=== PATIENT | female | born 1960 | race Caucasian/White ===

== ENCOUNTER 2022-01-09 12:01 | Emergency (ER) | payer OTHER, SELFPAY ==
[2022-01-09 12:07] VITALS: BP 188/11; PULSE 66; RESP 18; TEMP 36.3; O2SAT 96; BMI 32.9
--- NOTE | 2022-01-09 13:26 | CRLHL7_ITS ---
For Patients: As a result of the Century Cures Act, medical imaging exams and procedure reports are released immediately into your electronic medical record. You may view this report before your referring provider. If you have questions, please contact your health care provider. HISTORY: Anterior pain. No injury. TECHNIQUE: CT right hip without contrast. COMPARISON: None. FINDINGS: No fracture. Right hip joint is maintained. Pubic symphysis is maintained. Mild degenerative changes of the visualized portion of the right sacroiliac joint. Small bone island in the medial right acetabulum. Atherosclerotic calcifications. Partially visualized aneurysmal dilation of the left common iliac artery. IMPRESSION: 1. No acute abnormality. 2. Atherosclerosis. Partially visualized left common iliac artery aneurysm. Please note that all CT scans at this facility use dose modulation, iterative reconstruction, and/or weight-based dosing when appropriate to reduce radiation dose to as low as reasonably achievable. Dictated by Tristin Reyes MD @ 01/09/2022 2:57:58 PM (Electronically Signed)
[2022-01-09] MEDS: MORPHINE 2 MG/ML inj 4 MG IVP (13:55)
--- NOTE | 2022-01-09 14:00 | ED.NURSE ---
4mg/ml vial of morphine given.
--- NOTE | 2022-01-09 14:36 | ED_ITS ---
HPI - General Adult General Chief complaint: Extremity Pain/Injury, Lower Stated complaint: Right leg pain Time Seen by Provider: 01/09/22 13:01 Source: patient Limitations: no limitations History of Present Illness HPI narrative: 61-year-old female coming in today complaining of hip and leg pain going on for about 2 weeks. She states that it started with a discomfort on the anterior thigh and into the groin. She started seeing a chiropractor who has been adjusting her pelvis for the last 2 weeks and the pain seems to have been tolerable. Today however she woke up and she had increasing pain in the anterior thigh area. She describes it as a constant soreness and then she gets muscle spasms that caused her to double over. She states that she can hardly move that leg without the pain shooting into her thigh and hip area. Any movement makes it worse nothing seems to make it better. She denies any systemic symptoms such as fevers, chills, nausea, vomiting. She denies pain in any other joint or extremity. She denies the thigh swelling or any skin changes. She denies any trauma to the area. She denies any knee pain on that side. She denies any back pain. She has not been having any weight loss, night sweats. No changes in her appetite. Related Data Home Medications Medication Instructions Recorded Confirmed atenolol 25 mg tablet 25 mg PO DAILY 01/09/22 01/09/22 levothyroxine 75 mcg tablet 75 mcg PO DAILY 01/09/22 01/09/22 lisinopril 20 0.5 tab PO DAILY 01/09/22 01/09/22 mg-hydrochlorothiazide 25 mg tablet simvastatin 40 mg tablet 40 mg PO HS 01/09/22 01/09/22 Previous Rx's Medication Instructions Recorded methylprednisolone 4 mg tablets in See Rx Instructions PO .COMPLEX 01/09/22 a dose pack (Medrol (Jaspreet)) #21 ea Allergies Allergy/AdvReac Type Severity Reaction Status Date / Time guaifenesin AdvReac Intermediate Hives Verified 01/09/22 12:12 Penicillins AdvReac Intermediate Diarrhea Verified 01/09/22 12:12 Review of Systems Status of ROS: Reports: 10 or more systems reviewed and unremarkable except as noted in History and below PFSH PFS Social History Smoking Status: Never smoker Do you use any of these nicotine containing products: None Second hand tobacco smoke exposure: No How often do you have a drink containing alcohol: monthly or less How often do you have six or more drinks on one occasion: Never AUDIT-C Alcohol total score: 1 Non-prescribed substance use: denies use service: No Exam Narrative: Exam Narrative: Overweight, well-developed patient in no acute distress. Alert and oriented. Answers questions appropriately. Mood and affect are appropriate. Thoughts are goal oriented and rational. No tangential or magical thinking noted. Patient speaks in full sentences without needing to catch her breath. She does not appear ill or toxic. HEENT: Normocephalic atraumatic. Pupils are equally round reactive to light. Extraocular muscles are intact. Conjunctivae are moist without any icterus noted. Cardiovascular: Heart is regular rate and rhythm S1 and S2 are present. Lungs: Clear to auscultation bilaterally. Abdomen: Soft and nontender nondistended with normal bowel sounds. No guarding or rebound. No masses or organomegaly appreciated. Extremities: Bilateral lower extremities are without edema. Normal DP and PT pulses. Patient has no tenderness to palpation of the anterior thigh. The thigh is not swollen or erythematous. When she has which she describes a muscle spasm the muscle does not feel tighter were contracted. I cannot move her leg without the patient crying in pain, therefore I cannot examine her hip joint. Skin: Well perfused without any obvious rashes. Const: Vital Signs, click to edit/add: Vital Signs - 24 hr 01/09/22 12:07 01/09/22 15:12 Temperature 97.4 F L Pulse Rate 60 Pulse Rate [Pulse Oximeter] 66 Respiratory Rate 18 Blood Pressure 134/62 Blood Pressure [Ri ght Upper Arm] 188/11 H Pulse Oximetry 96 97 Oxygen Delivery Me thod Room Air Course Course Hospital Course: IV was started and patient was given IV morphine. This did take the edge off of her pain. We did proceed with a hip CT given the duration of her pain and the intensity of it. This is unremarkable. Proceeded with a femur and lumbar spine x-ray, both unremarkable. Vital Signs Vital signs: Initial Vital Signs Temperature 97.4 F L 01/09/22 12:07 Temperature Source Temporal Artery Scan 01/09/22 12:07 Pulse Rate 66 01/09/22 12:07 Respiratory Rate 18 01/09/22 12:07 Blood Pressure 188/11 H 01/09/22 12:07 Blood Pressure Mean 70 01/09/22 12:07 Blood Pressure Position Standing 01/09/22 12:07 Pulse Oximetry 96 01/09/22 12:07 Oxygen Delivery Method 01/09/22 12:07 Vital Signs Temperature 97.4 F L 01/09/22 12:07 Pulse Rate 66 01/09/22 12:07 Respiratory Rate 18 01/09/22 12:07 Blood Pressure 188/11 H 01/09/22 12:07 Pulse Oximetry 96 01/09/22 12:07 Oxygen Delivery Method 01/09/22 12:07 Temperature 97.4 F L 01/09/22 12:07 Pulse Rate 60 01/09/22 15:12 Respiratory Rate 18 01/09/22 12:07 Blood Pressure 134/62 01/09/22 15:12 Pulse Oximetry 97 01/09/22 15:12 Oxygen Delivery Method 01/09/22 12:07 Medical Decision Making [facility] Narrative Medical decision making narrative: 61-year-old female with 2 weeks of anterior leg pain sometimes radiating into the groin. Question a femoral nerve impingement. We ruled out soft tissue and bony masses or malignancy today. I do not see any evidence of vascular compromise. We discussed a steroid to see if we can decrease impingement and inflammation of that nerve, follow-up with primary care in the next few days. Patient was agreeable with this. I also did prescribe her hydrocodone to take as needed, 10 tablets from [facility]. Imaging Data lumbar spine: Attestation: I have reviewed the pertinent imaging results. Radiologist's impression: Findings/Impression: Five non rib-bearing lumbar type vertebral bodies. No vertebral body height loss or evidence of acute fracture. Severe multilevel degenerative disc disease most advanced at L3-L4 and L4-L5. Multilevel facet degenerative change in the lower lumbar spine. Mild degenerative change in the right SI joint. Aortic atherosclerosis. femur xr: Attestation: I have reviewed the pertinent imaging results. Radiologist's impression: Findings/Impression: Bones: Alignment is normal. No fractures or bone lesions. Joint spaces: Unremarkable. Soft tissues: Unremarkable. CT hip: Attestation: I have reviewed the pertinent imaging results. Radiologist's impression: FINDINGS: No fracture. Right hip joint is maintained. Pubic symphysis is maintained. Mild degenerative changes of the visualized portion of the right sacroiliac joint. Small bone island in the medial right acetabulum. Atherosclerotic calcifications. Partially visualized aneurysmal dilation of the left common iliac artery. IMPRESSION: 1. No acute abnormality. 2. Atherosclerosis. Partially visualized left common iliac artery aneurysm. Discharge Plan Discharge Clinical Impression: Acute leg pain Patient Disposition: Home, Self-Care Condition: Stable Additional Instructions: Take steroid as prescribed. Okay to use ibuprofen or Tylenol as needed for discomfort. Follow-up with your primary care provider in the clinic early next week if you are not noticing any improvement. Prescriptions: New methylprednisolone [Medrol (Jaspreet)] 4 mg tablets,dose pack See Rx Instructions .ROUTE .COMPLEX Qty: 21 0RF Rx Instructions: orally per package directions No Action atenolol 25 mg tablet 25 mg PO DAILY Label Comments: TAKE 1 TABLET BY MOUTH ONCE DAILY simvastatin 40 mg tablet 40 mg PO HS Label Comments: TAKE 1 TABLET BY MOUTH AT BEDTIME levothyroxine 75 mcg tablet 75 mcg PO DAILY Label Comments: TAKE 1 TABLET BY MOUTH ONCE DAILY lisinopril-hydrochlorothiazide 20-25 mg tablet 0.5 tab PO DAILY Label Comments: TAKE 1/2 TABLET BY MOUTH DAILY Follow Up/Referrals: Sania Navarrete MD [Primary Care Provider] - Stand Alone Forms: [employer] Info Instructions
[2022-01-09 15:12] VITALS: BP 134/62; PULSE 60; O2SAT 97
--- NOTE | 2022-01-09 15:24 | CRLHL7_ITS ---
For Patients: As a result of the Cures Act, medical imaging exams and procedure reports are released immediately into your electronic medical record. You may view this report before your referring provider. If you have questions, please contact your health care provider. Indication: Radiculopathy. Technique: Two views. Comparison: None. Findings/Impression: Five non rib-bearing lumbar type vertebral bodies. No vertebral body height loss or evidence of acute fracture. Severe multilevel degenerative disc disease most advanced at L3-L4 and L4-L5. Multilevel facet degenerative change in the lower lumbar spine. Mild degenerative change in the right SI joint. Aortic atherosclerosis. Dictated by Cipriano Bhagat MD @ 01/09/2022 4:05:08 PM (Electronically Signed)
--- NOTE | 2022-01-09 15:24 | CRLHL7_ITS ---
For Patients: As a result of the Century Cures Act, medical imaging exams and procedure reports are released immediately into your electronic medical record. You may view this report before your referring provider. If you have questions, please contact your health care provider. Indication: Leg pain. Technique: Two views. Comparison: CT hip 01/09/2022. Findings/Impression: Bones: Alignment is normal. No fractures or bone lesions. Joint spaces: Unremarkable. Soft tissues: Unremarkable. Dictated by Cipriano Bhagat MD @ 01/09/2022 4:03:39 PM (Electronically Signed)
[2022-01-09 15:32] VITALS: BP 153/76
[2022-01-09 16:02] VITALS: BP 156/80; PULSE 55; O2SAT 98
[2022-01-09 16:05] VITALS: PULSE 58; O2SAT 98
== END 2022-01-09 16:33 | disposition home or self-care (01) ==
PROVIDERS: Emergency Provider Family Medicine; PCP Family Medicine
DX: M25.551 Pain in right hip (principal); M79.651 Pain in right thigh
CPT/HCPCS: 72100; 73552; 73700; 96374; 99284; J2270

== ENCOUNTER 2022-06-03 16:00 | Outpatient (CLI) | payer OTHER, SELFPAY ==
--- NOTE | 2022-06-03 16:00 | CRLHL7_ITS ---
For Patients: As a result of the Century Cures Act, medical imaging exams and procedure reports are released immediately into your electronic medical record. You may view this report before your referring provider. If you have questions, please contact your health care provider. INDICATION: Multinodular thyroid goiter. Follow-up right-sided thyroid lobe nodules. TECHNIQUE: Directed thyroid ultrasound. COMPARISON: 05/21/2020. FINDINGS: The right thyroid lobe measures 4.6 x 1.6 x 1.5 cm. The left thyroid lobe measures 4.2 x 2.0 x 1.9 cm. The isthmus measures 0.3 cm. The thyroid echotexture is extremely heterogeneous. Within the mid left thyroid gland, there is a 3 x 4 x 6 mm dense calcification. This was identified previously and is unchanged. Within the upper pole of the right thyroid gland, there is a 1.2 x 1.4 x 1.5 cm solid nodule, little changed when accounting for technique, previously measuring 1.6 x 1.4 x 1.2 cm. Within the inferior right thyroid lobe, there is a 1.9 x 0.8 x 1.7 cm heterogeneous complex cystic and solid nodule. In the mid medial right thyroid gland near the isthmus is a 1.8 x 1.2 x 1.5 cm solid nodule with calcification. Previously only a single right lower lobe nodule was described measuring 2.1 x 1.6 x 1.5 cm. It is likely that these latter two nodules are coalescing, similar to the prior study (T4 lesion). IMPRESSION: 1. Diffusely heterogeneous thyroid gland. 2. Stable dense calcification mid left thyroid gland. 3. Relatively stable right upper lobe solid nodule measuring up to 1.5 cm, previously 1.6 cm. 4. The two lesions described in the right lower thyroid gland extending to the isthmus may reflect coalescing nodules. Consider follow-up ultrasound in 1 year. Dictated by Luiz Murguia MD @ 06/04/2022 12:02:07 PM (Electronically Signed)
== END 2022-06-03 16:01 | disposition home or self-care (01) ==
LOC: US 16:00
PROVIDERS: PCP Family Medicine; Visit Provider Surgery
DX: E04.1 Nontoxic single thyroid nodule (principal)
CPT/HCPCS: 76536

== ENCOUNTER 2022-07-07 08:40 | Outpatient (CLI) | payer OTHER, SELFPAY ==
[2022-07-07 14:59] LABS: Albumin* 4.4 g/dL (3.3-5.0); Chloride* 100 mmol/L (96-114)
[2022-07-07 15:00] LABS: Potassium* 4.4 mmol/L (3.6-5.1); Sodium* 134 mmol/L (135-149)
[2022-07-07 15:02] LABS: Bilirubin Total* 0.5 mg/dL (0.1-1.5); Carbon Dioxide* 27 mmol/L (20-32); Cholesterol* 185 mg/dL (90-199); Creatinine* 0.8 mg/dL (0.5-1.5); Estimated Glomerular Filt Rate 83 ml/min
[2022-07-07 15:03] LABS: Alanine Aminotransferase* 22 U/L (4-35); Alkaline Phosphatase* 62 U/L (40-150); Aspartate Amino Transferase* 27 U/L (12-35); Blood Urea Nitrogen* 11 mg/dL (7-30); Calcium* 9.4 mg/dL (8.4-10.6); Glucose* 109 mg/dL (60-115); HDL Cholesterol* 59 mg/dL (>=50); LDL Cholesterol Calculated 86 mg/dL (<100); Total Protein* 7.3 g/dL (6.0-8.3); Triglycerides* 199 mg/dL (40-149)
== END 2022-07-07 08:41 | disposition home or self-care (01) ==
PROVIDERS: PCP Family Medicine; Visit Provider Internal Medicine
DX: E78.5 Hyperlipidemia, unspecified (principal); I10 Essential (primary) hypertension
CPT/HCPCS: 80053; 80061

== ENCOUNTER 2022-07-09 14:54 | Outpatient (CLI) | payer OTHER, SELFPAY | END 2022-07-09 14:55 | disposition home or self-care (01) | LOC: NFLDREF 14:55 | PROVIDERS: PCP Family Medicine; Visit Provider Internal Medicine | DX: Z00.00 Encounter for general adult medical examination without abnormal findings (principal); E04.1 Nontoxic single thyroid nodule; I10 Essential (primary) hypertension; E66.9 Obesity, unspecified; E78.5 Hyperlipidemia, unspecified | CPT/HCPCS: 84443 ==

== ENCOUNTER 2022-08-29 11:53 | Outpatient (CLI) | payer OTHER, SELFPAY | END 2022-08-29 11:54 | disposition home or self-care (01) | PROVIDERS: PCP Internal Medicine; Visit Provider Internal Medicine | DX: Z12.11 Encounter for screening for malignant neoplasm of colon (principal); K63.5 Polyp of colon; K57.30 Diverticulosis of large intestine without perforation or abscess without bleeding | CPT/HCPCS: 45380; 88305; J2250; J3010 ==

== ENCOUNTER 2022-09-02 20:40 | Inpatient (IN) | payer OTHER, SELFPAY ==
[2022-09-02] VITALS (9 sets, daily range): BP systolic 118–185; BP diastolic 68–84; PULSE 74–81; RESP 16–18; TEMP 36.7–36.8; O2SAT 97–99; BMI 32.0
--- NOTE | 2022-09-02 21:15 | ED_ITS ---
HPI - Abdominal Pain General Chief Complaint: Abdominal Pain Stated Complaint: Had colonoscopy, abdominal pain Time Seen by Provider: 09/02/22 21:01 History of Present Illness HPI narrative: 62-year-old woman with a history of diverticulitis having had a surveillance colonoscopy 4 days ago. She reports 1 polyp was removed she thinks around the area of the sigmoid. Since that time she has had increasing pain that developed really the next night. Has been in contact with colonoscopy provider and was initiated on ciprofloxacin and metronidazole and has had 3 doses of that. She does have some nausea but has not been vomiting. Has had a number of stools and continues to pass flatus. Last stool today was maybe a little runny maybe a little darker. Feels generally quite bloated. Has not noticed any hematochezia. No fever. No chills. Took some acetaminophen with minimal ef fect on pain. Urinating normally. Related Data Previous Rx's Medication Instructions Recorded atenolol 25 mg tablet 25 mg PO DAILY Hypertension #90 07/09/22 tabs levothyroxine 75 mcg tablet 75 mcg PO DAILY Hypothyroidism #90 07/09/22 tabs lisinopril 20 0.5 tab PO DAILY Hypertension #60 07/09/22 mg-hydrochlorothiazide 25 mg tablet tabs simvastatin 40 mg tablet 40 mg PO HS Hyperlipidemia #90 tabs 07/09/22 peg 3350-electrolytes 236 240 ml PO Q10M #4,000 mL 07/15/22 gram-22.74 gram-6.74 gram-5.86 gram solution (Golytely) ciprofloxacin HCl 500 mg tablet 500 mg PO BID Diverticulitis #14 09/01/22 tabs metronidazole 500 mg tablet 500 mg PO TID Diverticulitis 7 09/01/22 days #21 tabs Allergies Allergy/AdvReac Type Severity Reaction Status Date / Time guaifenesin Allergy Severe Rash Verified 09/02/22 21:00 penicillin V Allergy Severe Diarrhea Verified 09/02/22 21:00 Penicillins AdvReac Intermediate Diarrhea Verified 09/02/22 21:00 Review of Systems Status of ROS Reports: 6 or more systems reviewed and unremarkable except as noted in History and below [facility] Medical History Diverticulitis ?K57.92 - Diverticulitis of intestine, part unspecified, without perforation or abscess without bleeding (ICD-10) Encounter for pre-operative examination ?Z01.818 - Encounter for other preprocedural examination (ICD-10) Surgical History History of appendectomy (1983) ?Z90.49 - Acquired absence of other specified parts of digestive tract (ICD- 10) History of hysterectomy with bilateral oophorectomy (1988) ?Z90.710 - Acquired absence of both cervix and uterus (ICD-10) ?Z90.722 - Acquired absence of ovaries, bilateral (ICD-10) History of laparoscopy ?Z98.890 - Other specified postprocedural states (ICD-10) Family History Father Melanoma Uncle Melanoma Social History Highest level of school completed/degree received: some college, no degree Smoking Status: Current some day smoker Do you use any of these nicotine containing products: None Second hand tobacco smoke exposure: No How often do you have a drink containing alcohol: monthly or less How often do you have six or more drinks on one occasion: Never AUDIT-C Alcohol total score: 1 Non-prescribed substance use: denies use Caffeine: No Little interest or pleasure in doing things: not at all Feeling down, depressed, or hopeless: not at all service: No Exam Narrative: Exam Narrative: Pleasant. Mild hard of hearing with hearing aids in place. Seems generally a little uncomfortable with movements. Breathing easily. Skin is warm and dry. Lower extremities are without edema. She is well-perfused peripherally. Oropharynx is moist. She is chewing some mint gum. Lungs appear to be clear. Heart with regular rate and rhythm with a 1/6 holosystolic murmur. She reports this is not new. Abdomen with normoactive bowel sounds is soft though clearly tender throughout the mid low abdomen. No peritoneal signs. She does guard just a little bit. Const: Vital Signs, click to edit/add: Vital Signs - 24 hr 09/02/22 20:57 09/02/22 21:40 09/02/22 22:33 Temperature 98.0 F 98.0 F 98.2 F Pulse Rate Pulse Rate [Right Pulse Oximeter] 79 81 Respiratory Rate 18 16 Blood Pressure Blood Pressure [Ri ght Upper Arm] 185/84 H 118/79 Pulse Oximetry 99 99 Oxygen Delivery Me thod Room Air Room Air 09/02/22 22:09 09/02/22 22:30 09/02/22 21:00 Temperature Pulse Rate 78 75 Pulse Rate [Right Pulse Oximeter] Respiratory Rate 16 16 Blood Pressure 136/68 125/70 Blood Pressure [Ri ght Upper Arm] Pulse Oximetry 98 99 98 Oxygen Delivery Me thod 09/02/22 22:36 09/02/22 22:32 09/02/22 23:02 Temperature 98.2 F Pulse Rate 79 74 Pulse Rate [Right Pulse Oximeter] Respiratory Rate 16 16 Blood Pressure 139/68 149/72 H Blood Pressure [Ri ght Upper Arm] Pulse Oximetry 97 99 Oxygen Delivery Me thod 09/03/22 00:08 Temperature 98.2 F Pulse Rate Pulse Rate [Right Pulse Oximeter] 84 Respiratory Rate 16 Blood Pressure Blood Pressure [Ri ght Upper Arm] 124/78 Pulse Oximetry 99 Oxygen Delivery Me thod Room Air Documenting provider has reviewed patient's vital signs: yes Course Vital Signs Vital signs: Initial Vital Signs Temperature 98.0 F 09/02/22 20:57 Temperature Source Temporal Artery Scan 09/02/22 20:57 Pulse Rate 79 09/02/22 20:57 Respiratory Rate 18 09/02/22 20:57 Blood Pressure 185/84 H 09/02/22 20:57 Blood Pressure Mean 117 H 09/02/22 20:57 Blood Pressure Position Sitting 09/02/22 20:57 Pulse Oximetry 99 09/02/22 20:57 Oxygen Delivery Method Room Air 09/02/22 20:57 Vital Signs Temperature 98.0 F 09/02/22 20:57 Pulse Rate 79 09/02/22 20:57 Respiratory Rate 18 09/02/22 20:57 Blood Pressure 185/84 H 09/02/22 20:57 Pulse Oximetry 99 09/02/22 20:57 Oxygen Delivery Method Room Air 09/02/22 20:57 Temperature 98.0 F 09/03/22 02:57 Pulse Rate 65 09/03/22 02:57 Respiratory Rate 16 09/03/22 02:57 Blood Pressure 146/83 H 09/03/22 02:57 Pulse Oximetry 94 09/03/22 02:57 Oxygen Delivery Method Room Air 09/03/22 02:57 MDM - Abdominal Pain MDM Narrative Medical decision making narrative: Does not seem to have peritoneal signs suggesting perforation or other but I think it would be prudent to image. Labs as well. This may just be some residual discomfort from procedure but secondary infection is of potential concern. There is history of diverticulitis as well. I do discuss case with provider who performed colonoscopy and has been providing care since. He arrives to consult with patient. IV is established and is given normal saline. Also ketorolac. Overall pain is improved though still present. Reviewing labs white count is not elevated. CRP notably elevated at 16.7. Tsubbs rprisingly basic metabolic panel with sodium of 120 potassium of 2.7. I have added on magnesium level. Review of record shows sodium normally in mid 130s last checked approximately a month ago. I suspect that this was iatrogenic of sorts occurring with bowel prep. She does not have any smoldering pulmonary disease nor acute pulmonary process. Is not continuing to have diarrhea and has not been vomiting. Having received 1 L normal saline out expect her sodium now to be approximately 122/123. Reviewing CT images is without apparent free air. I can appreciate some mild inflammatory changes localized in the pericolonic area in the left lower abdomen. Radiology over-read as below--- Vasculature: Scattered atherosclerotic calcifications. Ectatic infrarenal abdominal aorta measuring 2.6 cm. 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 Omentum/Peritoneum/Abdominal Wall: Unremarkable. No free air or significant free fluid. Pelvis: Status post hysterectomy. Bones: Degenerative changes of the spine. IMPRESSION: 1. Acute uncomplicated sigmoid diverticulitis. 2. 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 I think if it was abdominal pain alone would consider discharge with further pain management continuing current antibiotics however with hyponatremia to this degree I have consulted with our hospitalist for admission. Continued on normal saline and re-dosing of antibiotics Medical Records Attestation: I reviewed the patient's medical records. Lab Data Attestation: I reviewed the patient's lab results. Labs: Lab Results 09/02/22 09/02/22 Range/Units 21:21 21:30 WBC 8.75 (4.50-11.00) K/uL RBC 3.60 L (4.00-5.20) m/uL Hgb 11.1 L (12.0-16.0) gm/dL Hct 31.3 L (33.0-51.0) % MCV 87 (80-100) fL MCH 31 (26-34) pg MCHC 36 (32-36) gm/dL RDW Coeff of Kajal 11.5 (11.5-15.5) % Plt Count 224 (140-440) K/uL Neut % (Auto) 74.2 H (42.0-72.0) % Lymph % (Auto) 18.7 L (20-44) % [place] % (Auto) 5.1 (0.0-11.0) % Eos % (Auto) 1.6 (0.0-7.0) % Baso % (Auto) 0.3 (0.0-3.0) % Neut # (Auto) 6.50 (1.7-7.0) K/uL Lymph # (Auto) 1.60 (0.90-2.90) K/uL [place] # (Auto) 0.40 (0.00-0.90) K/UL Eos # (Auto) 0.14 (0.00-0.50) K/uL Baso # (Auto) 0.03 (0.00-0.30) K/uL Sodium 120 L* (135-149) mmol/L Potassium 2.7 L* (3.6-5.1) mmol/L Chloride 87 L (96-114) mmol/L Carbon Dioxide 24 (20-32) mmol/L BUN 9 (7-30) mg/dL Creatinine 0.8 (0.5-1.5) mg/dL Estimated Creat Clear 45.54 Estimated GFR 83 ml/min Glucose 105 (60-115) mg/dL Lactate 0.8 (0.5-1.9) mmol/L Calcium 9.0 (8.4-10.6) mg/dL Magnesium 1.7 (1.5-2.6) mg/dL Total Bilirubin 0.5 (0.1-1.5) mg/dL Direct Bilirubin 0.2 (0.0-0.5) mg/dL AST 25 (12-35) U/L ALT 20 (4-35) U/L Alkaline Phosphatase 68 (40-150) U/L C-Reactive Protein 16.7 H (0.5-1.0) mg/dL Total Protein 7.4 (6.0-8.3) g/dL Albumin 4.4 (3.3-5.0) g/dL Lipase 64 (23-300) U/L Urine Color Yellow (Yellow) Urine Appearance Slightly Cloudy A (Clear) Urine pH 6.0 (5.0-8.5) Ur Specific [place] 1.010 (1.000-1.030) Urine Protein 1+ A (Negative) Urine Glucose (UA) Negative (Negative) Urine Ketones 1+ A (Negative) Urine Blood 3+ A (Negative) Urine Nitrite Negative (Negative) Urine Bilirubin Negative (Negative) Urine Urobilinogen 0.2 (0.2-1.0) Ur Leukocyte Esterase Trace A (Negative) Urine RBC 10-25 A (0-2) Urine WBC 2-5 (0-5) Ur Squamous Epith Cells Moderate A (None-Few) Urine Bacteria Moderate A (None) SARS-CoV-2 (PCR) Negative SARS-CoV-2 (Negative) Discharge Plan Discharge Clinical Impression: Diverticulitis, Hyponatremia, Abdominal pain, Hypokalemia Patient Disposition: Admitted As Inpatient Condition: Improved
--- NOTE | 2022-09-02 21:20 | CRLHL7_ITS ---
For Patients: As a result of the Century Cures Act, medical imaging exams and procedure reports are released immediately into your electronic medical record. You may view this report before your referring provider. If you have questions, please contact your health care provider. INDICATION: Abdominal pain. TECHNIQUE: CT abdomen and pelvis acquired with 85 cc Isovue 370 IV contrast. COMPARISON: CT abdomen and pelvis 08/08/2010. FINDINGS: Lower chest: Bibasilar linear parenchymal bands, likely representing subsegmental atelectasis/scarring. Liver: Subcentimeter hypodense foci are too small to accurately characterize but statistically likely benign. Gallbladder and bile ducts: Unremarkable. No stones or inflammation. No biliary ductal dilatation. Spleen: Unremarkable. Normal in size. No masses. Adrenal glands: Unremarkable. No nodules. Pancreas: Unremarkable. No mass or inflammation. Kidneys: Unremarkable. No suspicious masses, stones, or hydronephrosis. GI tract: Scattered colonic diverticula. Wall thickening of the mid sigmoid colon with fat stranding surrounding a diverticulum. Small and large bowel are otherwise normal in caliber. No evidence of obstruction. Lymph nodes: No lymphadenopathy. Vasculature: Scattered atherosclerotic calcifications. Ectatic infrarenal abdominal aorta measuring 2.6 cm. 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 Omentum/Peritoneum/Abdominal Wall: Unremarkable. No free air or significant free fluid. Pelvis: Status post hysterectomy. Bones: Degenerative changes of the spine. IMPRESSION: 1. Acute uncomplicated sigmoid diverticulitis. 2. 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 Please note that all CT scans at this facility use dose modulation, iterative reconstruction, and/or weight-based dosing when appropriate to reduce radiation dose to as low as reasonably achievable. Dictated by Neymar Baca MD @ 09/02/2022 10:32:50 PM (Electronically Signed)
[2022-09-02 21:37] LABS: Lactate* 0.8 mmol/L (0.5-1.9)
[2022-09-02 21:38] LABS: Basophils Absolute Auto 0.03 K/uL (0.00-0.30); Basophils Percent Auto 0.3 % (0.0-3.0); Eosinophils Absolute Auto 0.14 K/uL (0.00-0.50); Eosinophils Percent Auto 1.6 % (0.0-7.0); Hematocrit 31.3 % (33.0-51.0); Hemoglobin* 11.1 gm/dL (12.0-16.0); Immature Granulocytes Abs Auto 0.01 K/uL (0.00-0.30); Immature Granulocytes Pct Auto 0.1 %; Lymphocytes Percent Auto 18.7 % (20-44); Mean Corpuscular HGB Conc 36 gm/dL (32-36); Mean Corpuscular Hemoglobin 31 pg (26-34); Mean Corpuscular Volume 87 fL (80-100); Monocytes Percent Auto 5.1 % (0.0-11.0); Neutrophils Percent Auto 74.2 % (42.0-72.0); Platelet Count* 224 K/uL (140-440); RDW Coefficient of Variation % 11.5 % (11.5-15.5); White Blood Count* 8.75 K/uL (4.50-11.00)
[2022-09-02] MEDS: KETOROLAC 30 MG/ML inj IVP (21:40)
[2022-09-02] MEDS: 0.9 % SODIUM CHLORIDE 1000 ml 1,000 ML IV (21:40)
[2022-09-02 21:49] LABS: Appearance Urine Slightly Cloudy (Clear); Bilirubin Urine Negative (Negative); Blood Urine 3+ (Negative); Color Urine Yellow (Yellow); Glucose Urine Negative (Negative); Ketones Urine 1+ (Negative); Leukocyte Esterase Urine Trace (Negative); Nitrite Urine Negative (Negative); Protein Urine 1+ (Negative); Urobilinogen Urine 0.2 (0.2-1.0)
[2022-09-02 21:54] LABS: Slide Review Reflex No
[2022-09-02 21:56] LABS: Albumin* 4.4 g/dL (3.3-5.0); Chloride* 87 mmol/L (96-114)
[2022-09-02 21:59] LABS: Bilirubin Direct* 0.2 mg/dL (0.0-0.5); Bilirubin Total* 0.5 mg/dL (0.1-1.5); Carbon Dioxide* 24 mmol/L (20-32); Creatinine* 0.8 mg/dL (0.5-1.5); Est. Creatinine Clearance* 45.54; Estimated Glomerular Filt Rate 83 ml/min
[2022-09-02 22:00] LABS: Alanine Aminotransferase* 20 U/L (4-35); Alkaline Phosphatase* 68 U/L (40-150); Aspartate Amino Transferase* 25 U/L (12-35); Blood Urea Nitrogen* 9 mg/dL (7-30); Glucose* 105 mg/dL (60-115); Lipase* 64 U/L (23-300); Total Protein* 7.4 g/dL (6.0-8.3)
[2022-09-02 22:10] LABS: Potassium* 2.7 mmol/L (3.6-5.1); Sodium* 120 mmol/L (135-149)
[2022-09-02 22:12] LABS: Bacteria Urine Moderate; Squamous Epithelial Cell Urine Moderate (None-Few)
[2022-09-02 22:23] LABS: C Reactive Protein* 16.7 mg/dL (0.5-1.0)
[2022-09-02 22:31] LABS: SARS PCR* Negative SARS-CoV-2 (Negative)
--- NOTE | 2022-09-02 22:48 | ED.ABDPAIN ---
HPI - Abdominal Pain General Chief Complaint: Abdominal Pain Stated Complaint: Had colonoscopy, abdominal pain Time Seen by Provider: 09/02/22 21:01 History of Present Illness HPI narrative: I received a call at the office yesterday from Analilia stating that she was having increasing abdominal pain 3 days after her colonoscopy. Her colonoscopy was largely unremarkable with diverticulosis as well as which turned out to be a small hyperplastic polyp that we were able to remove. Patient states she felt well after the procedure but sluggish and went home and felt sleepy. She rested well that night and was eating regular diet. Over the course of the next days she developed increased lower abdominal pain. She had no blood in her stool no fever chills. The following day was very similar with her symptoms localizing to the left lower quadrant. Patient not only had diverticulosis on colonoscopy she had diverticulitis number of years ago. I did receive a call late yesterday that the patient was having increased abdominal pain I did call Analilia and she did not appear to have any signs of peritonitis and was eating and drinking to limited extent but fairly normally. She was passing her bowels and was passing gas without difficulty. Obviously I was concerned but she did not seem to have peritonitis and was at that time not feeling like she needed to come in for assessment just wanted to talk on the phone. I did recommend clear liquid diet. I asked her to monitor her temperature. Given her history of diverticulitis in the past being similar to her current symptoms I did start her on Cipro and Flagyl. In lieu of her coming as she is reluctant to be in the hospital I did give her my cell phone number and called her again this morning when I got the office. She stated that at that time that she was about the same and was able to start the antibiotics. She again was told to call me if anything changed and I was planning to call her again tomorrow. I was fortunate to receive a phone call from her tonight stating that her pain which again was localized the lower abdomen was persisting. She was having some loose stools at that point but no signs of peritonitis. Patient was advised after discussion to come to the emergency room and I did meet her there. At the time of my assessment I found that she had positive bowel sounds and no signs of peritonitis. She did have some rebound localizing to the left lower quadrant. Patient's white blood cell count was normal and CT showed acute uncomplicated diverticulitis. Interestingly although she has been eating and drinking to limited extent yesterday her sodium is 120 and her potassium is 2.7. Of note both levels were fairly normal at her most recent physical exam. No free air or stranding was seen on the CT scan. I did do an up-to-date search for incidence of diverticulitis following colonoscopy and was not able find any data. I will be in touch with our Endoscopy unit to discuss cleaning process make sure that is not part of the problem although I do not believe it is. I did convince her that she does need to stay in the hospital and have her diverticulitis and electrolyte abnormalities treated with IV antibiotics IV fluids and fluid restriction. Related Data Previous Rx's Medication Instructions Recorded atenolol 25 mg tablet 25 mg PO DAILY Hypertension #90 07/09/22 tabs levothyroxine 75 mcg tablet 75 mcg PO DAILY Hypothyroidism #90 07/09/22 tabs lisinopril 20 0.5 tab PO DAILY Hypertension #60 07/09/22 mg-hydrochlorothiazide 25 mg tablet tabs simvastatin 40 mg tablet 40 mg PO HS Hyperlipidemia #90 tabs 07/09/22 peg 3350-electrolytes 236 240 ml PO Q10M #4,000 mL 07/15/22 gram-22.74 gram-6.74 gram-5.86 gram solution (Golytely) ciprofloxacin HCl 500 mg tablet 500 mg PO BID Diverticulitis #14 09/01/22 tabs metronidazole 500 mg tablet 500 mg PO TID Diverticulitis 7 09/01/22 days #21 tabs Allergies Allergy/AdvReac Type Severity Reaction Status Date / Time guaifenesin Allergy Severe Rash Verified 09/02/22 21:00 penicillin V Allergy Severe Diarrhea Verified 09/02/22 21:00 Penicillins AdvReac Intermediate Diarrhea Verified 09/02/22 21:00 [facility] Medical History Diverticulitis ?K57.92 - Diverticulitis of intestine, part unspecified, without perforation or abscess without bleeding (ICD-10) Encounter for pre-operative examination ?Z01.818 - Encounter for other preprocedural examination (ICD-10) Surgical History History of appendectomy (1983) ?Z90.49 - Acquired absence of other specified parts of digestive tract (ICD-10) History of hysterectomy with bilateral oophorectomy (1988) ?Z90.710 - Acquired absence of both cervix and uterus (ICD-10) ?Z90.722 - Acquired absence of ovaries, bilateral (ICD-10) History of laparoscopy ?Z98.890 - Other specified postprocedural states (ICD-10) Family History Father Melanoma Uncle Melanoma Social History Smoking Status: Current some day smoker Do you use any of these nicotine containing products: None Second hand tobacco smoke exposure: No How often do you have a drink containing alcohol: monthly or less How often do you have six or more drinks on one occasion: Never AUDIT-C Alcohol total score: 1 Non-prescribed substance use: denies use Little interest or pleasure in doing things: not at all Feeling down, depressed, or hopeless: not at all service: No Exam Const: Vital Signs, click to edit/add: Vital Signs - 24 hr 09/02/22 20:57 09/02/22 21:40 09/02/22 22:33 Temperature 98.0 F 98.0 F 98.2 F Pulse Rate Pulse Rate [Right Pulse Oximeter] 79 81 Respiratory Rate 18 16 Blood Pressure Blood Pressure [Ri ght Upper Arm] 185/84 H 118/79 Pulse Oximetry 99 99 Oxygen Delivery Me thod Room Air Room Air 09/02/22 22:09 09/02/22 22:30 09/02/22 21:00 Temperature Pulse Rate 78 75 Pulse Rate [Right Pulse Oximeter] Respiratory Rate 16 16 Blood Pressure 136/68 125/70 Blood Pressure [Ri ght Upper Arm] Pulse Oximetry 98 99 98 Oxygen Delivery Me thod 09/02/22 22:36 Temperature 98.2 F Pulse Rate Pulse Rate [Right Pulse Oximeter] Respiratory Rate Blood Pressure Blood Pressure [Ri ght Upper Arm] Pulse Oximetry Oxygen Delivery Me thod Course Vital Signs Vital signs: Initial Vital Signs Temperature 98.0 F 09/02/22 20:57 Temperature Source Temporal Artery Scan 09/02/22 20:57 Pulse Rate 79 09/02/22 20:57 Respiratory Rate 18 09/02/22 20:57 Blood Pressure 185/84 H 09/02/22 20:57 Blood Pressure Mean 117 H 09/02/22 20:57 Blood Pressure Position Sitting 09/02/22 20:57 Pulse Oximetry 99 09/02/22 20:57 Oxygen Delivery Method Room Air 09/02/22 20:57 Vital Signs Temperature 98.0 F 09/02/22 20:57 Pulse Rate 79 09/02/22 20:57 Respiratory Rate 18 09/02/22 20:57 Blood Pressure 185/84 H 09/02/22 20:57 Pulse Oximetry 99 09/02/22 20:57 Oxygen Delivery Method Room Air 09/02/22 20:57 Temperature 98.2 F 09/02/22 22:36 Pulse Rate 81 09/02/22 22:33 Respiratory Rate 16 09/02/22 22:33 Blood Pressure 118/79 09/02/22 22:33 Pulse Oximetry 99 09/02/22 22:33 Oxygen Delivery Method Room Air 09/02/22 22:33 MDM - Abdominal Pain Lab Data Labs: Lab Results 09/02/22 09/02/22 Range/Units 21:21 21:30 WBC 8.75 (4.50-11.00) K/uL RBC 3.60 L (4.00-5.20) m/uL Hgb 11.1 L (12.0-16.0) gm/dL Hct 31.3 L (33.0-51.0) % MCV 87 (80-100) fL MCH 31 (26-34) pg MCHC 36 (32-36) gm/dL RDW Coeff of [place]aj[place] 11.5 (11.5-15.5) % Plt Count 224 (140-440) K/uL Neut % (Auto) 74.2 H (42.0-72.0) % Lymph % (Auto) 18.7 L (20-44) % [place] % (Auto) 5.1 (0.0-11.0) % Eos % (Auto) 1.6 (0.0-7.0) % Baso % (Auto) 0.3 (0.0-3.0) % Neut # (Auto) 6.50 (1.7-7.0) K/uL Lymph # (Auto) 1.60 (0.90-2.90) K/uL [place] # (Auto) 0.40 (0.00-0.90) K/UL Eos # (Auto) 0.14 (0.00-0.50) K/uL Baso # (Auto) 0.03 (0.00-0.30) K/uL Sodium 120 L* (135-149) mmol/L Potassium 2.7 L* (3.6-5.1) mmol/L Chloride 87 L (96-114) mmol/L Carbon Dioxide 24 (20-32) mmol/L BUN 9 (7-30) mg/dL Creatinine 0.8 (0.5-1.5) mg/dL Estimated Creat Clear 45.54 Estimated GFR 83 ml/min Glucose 105 (60-115) mg/dL Lactate 0.8 (0.5-1.9) mmol/L Calcium 9.0 (8.4-10.6) mg/dL Total Bilirubin 0.5 (0.1-1.5) mg/dL Direct Bilirubin 0.2 (0.0-0.5) mg/dL AST 25 (12-35) U/L ALT 20 (4-35) U/L Alkaline Phosphatase 68 (40-150) U/L C-Reactive Protein 16.7 H (0.5-1.0) mg/dL Total Protein 7.4 (6.0-8.3) g/dL Albumin 4.4 (3.3-5.0) g/dL Lipase 64 (23-300) U/L Urine Color Yellow (Yellow) Urine Appearance Slightly Cloudy A (Clear) Urine pH 6.0 (5.0-8.5) Ur Specific [place] 1.010 (1.000-1.030) Urine Protein 1+ A (Negative) Urine Glucose (UA) Negative (Negative) Urine Ketones 1+ A (Negative) Urine Blood 3+ A (Negative) Urine Nitrite Negative (Negative) Urine Bilirubin Negative (Negative) Urine Urobilinogen 0.2 (0.2-1.0) Ur Leukocyte Esterase Trace A (Negative) Urine RBC 10-25 A (0-2) Urine WBC 2-5 (0-5) Ur Squamous Epith Cells Moderate A (None-Few) Urine Bacteria Moderate A (None) SARS-CoV-2 (PCR) Negative SARS-CoV-2 (Negative) Discharge Plan Discharge Prescriptions: No Action atenolol 25 mg tablet 25 mg PO DAILY Qty: 90 3RF Patient Comments: TAKE 1 TABLET BY MOUTH ONCE DAILY levothyroxine 75 mcg tablet 75 mcg PO DAILY Qty: 90 3RF Patient Comments: TAKE 1 TABLET BY MOUTH ONCE DAILY lisinopril-hydrochlorothiazide 20-25 mg tablet 0.5 tab PO DAILY Qty: 60 3RF Patient Comments: TAKE 1/2 TABLET BY MOUTH DAILY simvastatin 40 mg tablet 40 mg PO HS Qty: 90 3RF Patient Comments: TAKE 1 TABLET BY MOUTH AT BEDTIME peg 3350-electrolytes [Golytely] 236-22.74-6.74 -5.86 gram recon soln 240 ml PO Q10M Qty: 4000 0RF Rx Instructions: until fecal effluent is clear ciprofloxacin HCl 500 mg tablet 500 mg PO BID Qty: 14 0RF metronidazole 500 mg tablet 500 mg PO TID 7 Days Qty: 21 0RF Follow Up/Referrals: Shaheen Escobar MD [Primary Care Provider] -
[2022-09-02 23:40] LABS: Magnesium* 1.7 mg/dL (1.5-2.6)
[2022-09-03] VITALS (12 sets, daily range): BP systolic 124–158; BP diastolic 67–92; PULSE 63–84; RESP 12–16; TEMP 36.4–37.1; O2SAT 94–99; BMI 33.1
[2022-09-03] MEDS: CIPROFLOXACIN 500 MG TABLET PO ×3 (00:07→21:03)
[2022-09-03] MEDS: metroNIDAZOLE 500 MG TABLET PO ×4 (00:07→21:03)
--- NOTE | 2022-09-03 00:30 | PM.IMCN1 ---
Date of Consult Consult date: 09/03/22 Primary Care Provider: Shaheen Escobar MD Consult Narrative Narrative: [facility] Hospitalist ADMISSION SUPPORT NOTE eHospitalist was contacted by Dr. Le with request of admission support. Chief complaint: Abdominal Pain HPI: The patient had a colonoscopy about 4 days ago and the following day she started having abdominal pain that continued to intensify. She contacted her PCP on Thursday and was prescribed ciprofloxacin and Flagyl which she took Thursday evening and . She reports abdominal pain is generalized, pressure-like in character, 8/10 intensity and currently is 6-7/10 intensity. She has been experiencing nausea off and on. Review of systems other than mentioned above is negative Home Medications: Reviewed see EMR for details Pertinent Medical History: Hypertension, hypothyroidism, dyslipidemia, colonoscopy, please see EMR for further details regarding past surgical history Pertinent Social History: She smokes about 5-7 cigarettes/day and has done so for at least 40 years, denies drugs of abuse, occasional alcohol use PFSH PFS Medical History Diverticulitis ?K57.92 - Diverticulitis of intestine, part unspecified, without perforation or abscess without bleeding (ICD-10) Encounter for pre-operative examination ?Z01.818 - Encounter for other preprocedural examination (ICD-10) Surgical History History of appendectomy (1983) ?Z90.49 - Acquired absence of other specified parts of digestive tract (ICD-10) History of hysterectomy with bilateral oophorectomy (1988) ?Z90.710 - Acquired absence of both cervix and uterus (ICD-10) ?Z90.722 - Acquired absence of ovaries, bilateral (ICD-10) History of laparoscopy ?Z98.890 - Other specified postprocedural states (ICD-10) Family History Father Melanoma Uncle Melanoma Social History Highest level of school completed/degree received: some college, no degree Smoking Status: Current some day smoker Do you use any of these nicotine containing products: None Second hand tobacco smoke exposure: No How often do you have a drink containing alcohol: monthly or less How often do you have six or more drinks on one occasion: Never AUDIT-C Alcohol total score: 1 Non-prescribed substance use: denies use Caffeine: No Little interest or pleasure in doing things: not at all Feeling down, depressed, or hopeless: not at all service: No Meds Home Medications and Allergies Allergies Allergy/AdvReac Type Severity Reaction Status Date / Time guaifenesin Allergy Severe Rash Verified 09/02/22 21:00 penicillin V Allergy Severe Diarrhea Verified 09/02/22 21:00 Penicillins AdvReac Intermediate Diarrhea Verified 09/02/22 21:00 Exam Narrative: Exam Narrative: Exam (performed via interactive video with assistance of bedside nurse): General: Alert, cooperative, no acute distress HEENT: Oral mucosa pink and moist without erythema Lungs: Clear to auscultation bilaterally without crackle or wheeze CV: Regular rate and rhythm without loud murmur rub or gallop Abd: Bowel sounds present, complains of generalized abdominal pain with palpation done by bedside nurse Ext: No pitting edema noted Skin: No rashes, bruises or lesions appreciated on gross visualization of exposed skin Neuro: Alert, oriented x 3. CN III -VII, XI, XII grossly intact, moves all extremities without any significant focal deficit appreciated by nurse Const: Vital Signs, click to edit/add: Vital Signs - 24 hr 09/02/22 20:57 09/02/22 21:40 09/02/22 22:33 Temperature 98.0 F 98.0 F 98.2 F Pulse Rate Pulse Rate [Right Pulse Oximeter] 79 81 Respiratory Rate 18 16 Blood Pressure Blood Pressure [Ri ght Upper Arm] 185/84 H 118/79 Pulse Oximetry 99 99 Oxygen Delivery Me thod Room Air Room Air 09/02/22 22:09 09/02/22 22:30 09/02/22 21:00 Temperature Pulse Rate 78 75 Pulse Rate [Right Pulse Oximeter] Respiratory Rate 16 16 Blood Pressure 136/68 125/70 Blood Pressure [Ri ght Upper Arm] Pulse Oximetry 98 99 98 Oxygen Delivery Me thod 09/02/22 22:36 09/02/22 22:32 09/02/22 23:02 Temperature 98.2 F Pulse Rate 79 74 Pulse Rate [Right Pulse Oximeter] Respiratory Rate 16 16 Blood Pressure 139/68 149/72 H Blood Pressure [Ri ght Upper Arm] Pulse Oximetry 97 99 Oxygen Delivery Me thod 09/03/22 00:08 09/03/22 00:10 Temperature 98.2 F 98.2 F Pulse Rate Pulse Rate [Right Pulse Oximeter] 84 84 Respiratory Rate 16 16 Blood Pressure Blood Pressure [Ri t Upper Arm] 124/78 124/78 Pulse Oximetry 99 Oxygen Delivery Me thod Room Air Labs Labs: Short CBC 09/02/22 Range/Units 21:30 WBC 8.75 (4.50-11.00) K/uL Hgb 11.1 L (12.0-16.0) gm/dL Hct 31.3 L (33.0-51.0) % Plt Count 224 (140-440) K/uL BMP 09/02/22 21:30 Sodium 120 L* Potassium 2.7 L* Chloride 87 L Carbon Dioxide 24 BUN 9 Creatinine 0.8 Glucose 105 Calcium 9.0 Liver Function 09/02/22 Range/Units 21:30 Total Bilirubin 0.5 (0.1-1.5) mg/dL Direct Bilirubin 0.2 (0.0-0.5) mg/dL AST 25 (12-35) U/L ALT 20 (4-35) U/L Alkaline Phosphatase 68 (40-150) U/L Albumin 4.4 (3.3-5.0) g/dL Urine 09/02/22 Range/Units 21:21 Urine Color Yellow (Yellow) Urine Appearance Slightly Cloudy A (Clear) Urine pH 6.0 (5.0-8.5) Ur Specific [place] 1.010 (1.000-1.030) Urine Protein 1+ A (Negative) Urine Glucose (UA) Negative (Negative) Assessment and Plan Assessment and plan (1) Diverticulitis: Status: Acute Plan Recent lab/CT scan of abdomen and pelvis: Reviewed see EMR for details Assessment and Plan: 1. Sigmoid diverticulitis-continue Flagyl and ciprofloxacin. Pain control with IV narcotics 2. Leukocytosis-secondary to #1 3. Hyponatremia-acute. Continue IV fluids. Follow-up sodium showed improvement from 120 to 123 4. Hypokalemia-replete 5. Hypertension-continue atenolol however hold combination diuretic pill given hyponatremia 6. Hypothyroidism-continue Synthroid 7. Dyslipidemia-stable on statin 8. Smoking habituation-nicotine patch 9. DVT prophylaxis-Lovenox 10. CODE STATUS full code as the patient was uncertain as to which she would want done as relates to being intubated but is clear that she would want cardiac resuscitation. I explained to her because her answer is uncertain for intubation she will be full code for now until this can be further clarified. Chart review was performed as well as evaluation of the patient via video. Thank you for involving ehospitalist. Please contact [phone] if further assistance is needed.
[2022-09-03 01:35] LABS: Chloride* 91 mmol/L (96-114)
[2022-09-03] MEDS: POTASSIUM CHLORIDE 10 MEQ/100 ML PIGGYBACK 100 MEQ IVPB (01:37)
[2022-09-03 01:38] LABS: Creatinine* 0.8 mg/dL (0.5-1.5); Est. Creatinine Clearance* 45.54; Estimated Glomerular Filt Rate 83 ml/min
[2022-09-03 01:39] LABS: Blood Urea Nitrogen* 8 mg/dL (7-30); Calcium* 8.6 mg/dL (8.4-10.6); Carbon Dioxide* 25 mmol/L (20-32); Glucose* 94 mg/dL (60-115)
[2022-09-03 01:43] LABS: Potassium* 2.7 mmol/L (3.6-5.1); Sodium* 123 mmol/L (135-149)
[2022-09-03] MEDS: SIMVASTATIN 40 MG TABLET PO ×2 (01:53→21:03)
[2022-09-03] MEDS: ACETAMINOPHEN 325 MG TABLET 650 MG PO ×2 (01:54→16:22)
[2022-09-03] MEDS: 0.9 % SODIUM CHLORIDE 1000 ml 1,000 ML 100 ML IV ×3 (02:30→17:53)
[2022-09-03] MEDS: POTASSIUM CHLORIDE 10 MEQ/100 ML PIGGYBACK 50 MEQ IVPB ×3 (04:11→07:42)
[2022-09-03] MEDS: KETOROLAC 30 MG/ML inj IVP (04:12)
[2022-09-03] MEDS: LEVOTHYROXINE 75 MCG TABLET PO (06:50)
--- NOTE | 2022-09-03 07:56 | PC.NURSE ---
[id number] Shift Summary? [address], Abdominal pain- diverticulitis hx? Pt admitted to floor after midnight. Met doc via jr and admission completed. Pain to abdomen- bloating and pressure. Given Tylenol and ketorolac- wants to avoid narcotics. Up to BR several times SBA/independently to void and had 2 loose BMs which is new. No nausea or vomiting but has had nausea recently.?Electrolytes low Na 123 and K 2.7. Four K bags hung and NaCl @ 100. Run K slowly for patient comfort. Clear liquids ordered. Vitals stable and pt on room air. Given Synthroid, pt prefers morning meds at 6am. Wagner at bedside this morning. ?
[2022-09-03] MEDS: lisinopriL 20 MG TABLET PO (08:46)
[2022-09-03] MEDS: atenoloL 25 MG TABLET PO (08:46)
[2022-09-03 10:26] LABS: Basophils Absolute Auto 0.04 K/uL (0.00-0.30); Basophils Percent Auto 0.6 % (0.0-3.0); Eosinophils Absolute Auto 0.16 K/uL (0.00-0.50); Eosinophils Percent Auto 2.3 % (0.0-7.0); Hematocrit 27.1 % (33.0-51.0); Hemoglobin* 9.7 gm/dL (12.0-16.0); Immature Granulocytes Abs Auto 0.01 K/uL (0.00-0.30); Immature Granulocytes Pct Auto 0.1 %; Lymphocytes Percent Auto 19.4 % (20-44); Mean Corpuscular HGB Conc 36 gm/dL (32-36); Mean Corpuscular Hemoglobin 31 pg (26-34); Mean Corpuscular Volume 87 fL (80-100); Monocytes Percent Auto 5.2 % (0.0-11.0); Neutrophils Percent Auto 72.4 % (42.0-72.0); Platelet Count* 232 K/uL (140-440); RDW Coefficient of Variation % 11.5 % (11.5-15.5); White Blood Count* 6.87 K/uL (4.50-11.00)
[2022-09-03 10:28] LABS: Slide Review Reflex No
[2022-09-03 10:41] LABS: Chloride* 93 mmol/L (96-114); Potassium* 3.4 mmol/L (3.6-5.1)
[2022-09-03 10:44] LABS: Carbon Dioxide* 21 mmol/L (20-32); Creatinine* 0.8 mg/dL (0.5-1.5); Est. Creatinine Clearance* 45.54; Estimated Glomerular Filt Rate 83 ml/min
[2022-09-03 10:45] LABS: Blood Urea Nitrogen* 7 mg/dL (7-30); Calcium* 8.2 mg/dL (8.4-10.6); Glucose* 85 mg/dL (60-115); Magnesium* 1.6 mg/dL (1.5-2.6)
[2022-09-03 10:48] LABS: Sodium* 121 mmol/L (135-149)
[2022-09-03] MEDS: POTASSIUM CHLORIDE 10 MEQ, LIDOCAINE 1 % 1 ML in 0.9 % SODIUM CHLORIDE 100 ml 100 ML 106 MEQ IVPB (11:06)
[2022-09-03] MEDS: POTASSIUM BICARB 25 MEQ EFFERVESCENT TAB PO ×2 (11:06→12:54)
[2022-09-03] MEDS: POTASSIUM CHLORIDE 10 MEQ, LIDOCAINE 1 % 1 ML in 0.9 % SODIUM CHLORIDE 100 ml 100 ML 75 MEQ IVPB (12:51)
[2022-09-03] MEDS: SODIUM CHLORIDE 1 GM TABLET PO ×2 (12:55→17:49)
--- NOTE | 2022-09-03 14:39 | PM.IMHP1 ---
Hospitalist- H&P: HPI History of Present Illness Date Seen: 09/03/22 Chief complaint: Had colonoscopy, abdominal pain Narrative: Analilia Escudero is a 62 year old female who presented to the emergency room on 09/02 for abdominal pain, present for 4 days. Patient underwent a colonoscopy on Thursday, 08/29. This was an uncomplicated procedure. She had a normal day on Thursday, then woke up in the middle of the night with abdominal pain. She has continued to have pain in bloating over the past few days and decreased appetite, has been pushing fluids. She discussed symptoms with her PCP, Dr. Escobar, who urged her to come to the hospital for evaluation. ER course and findings: - sigmoid diverticulitis on CT scan - sodium of 120 (was 134 recently), potassium 2.7 - WBC 8.7 Patient was admitted overnight by E-hospitalist, tolerating potassium supplementation. History updated below, PCP is Dr. Escobar locally. Review of Systems Status of ROS: Reports: 10 or more systems reviewed and unremarkable except as noted in History and below Narrative: - recently decreased appetite, drinking quite a bit of fluid - no seizures, no urinary symptoms [facility] Medical History (Updated 09/03/22 @ 16:02 by Joy Cruz MD) Class 1 obesity ?E66.9 - Obesity, unspecified (ICD-10) DDD (degenerative disc disease), lumbar ?M51.36 - Other intervertebral disc degeneration, lumbar region (ICD-10) Diverticulitis ?K57.92 - Diverticulitis of intestine, part unspecified, without perforation or abscess without bleeding (ICD-10) Diverticulosis of colon (2008) ?K57.30 - Diverticulosis of large intestine without perforation or abscess without bleeding (ICD-10) Hyperlipidemia ?E78.5 - Hyperlipidemia, unspecified (ICD-10) Hypertension ?I10 - Essential (primary) hypertension (ICD-10) Hypothyroidism ?E03.9 - Hypothyroidism, unspecified (ICD-10) Intraepithelial neoplasm ?D49.9 - Neoplasm of unspecified behavior of unspecified site (ICD-10) Surgical History History of appendectomy (1983) ?Z90.49 - Acquired absence of other specified parts of digestive tract (ICD-10) History of hysterectomy with bilateral oophorectomy (1988) ?Z90.710 - Acquired absence of both cervix and uterus (ICD-10) ?Z90.722 - Acquired absence of ovaries, bilateral (ICD-10) History of laparoscopy ?Z98.890 - Other specified postprocedural states (ICD-10) Family History Father Melanoma Uncle Melanoma Social History (Updated 09/03/22 @ 15:57 by Joy Cruz MD) Narrative: Lives with Wagner, owns a [employer]. Wagner would be medical decision maker if needed. Full code status. Tapering down her cigarette use, approximately 5-7 per day. No concerning alcohol use. Highest level of school completed/degree received: some college, no degree Smoking Status: Current some day smoker Do you use any of these nicotine containing products: None Second hand tobacco smoke exposure: No How often do you have a drink containing alcohol: monthly or less How often do you have six or more drinks on one occasion: Never AUDIT-C Alcohol total score: 1 Non-prescribed substance use: denies use Caffeine: No Little interest or pleasure in doing things: not at all Feeling down, depressed, or hopeless: not at all service: No Meds Home Medications and Allergies Home Medication Comments: Patient is on atenolol, levothyroxine, lisinopril-hydrochlorothiazide, simvastatin Allergies Allergy/AdvReac Type Severity Reaction Status Date / Time guaifenesin Allergy Severe Rash Verified 09/02/22 21:00 penicillin V Allergy Severe Diarrhea Verified 09/02/22 21:00 Penicillins AdvReac Intermediate Diarrhea Verified 09/02/22 21:00 Exam Narrative: Exam Narrative: GEN: Alert and oriented, nontoxic in appearance HEENT: Normal external ears, EOMIs bilaterally, no scleral icterus CV: RRR, No concerning murmurs, rubs, or gallops R: LCTA bilaterally without concerning wheezing, rales, or rhonchi Ab: Soft, mild distention, mild ttp throughout, hypoactive but present bowel sounds Ext: wwp, no concerning edema Skin: No concerning skin lesions or rashes on exposed skin Neuro: Nonfocal Psych: Appropriate Const: Vital Signs, click to edit/add: Vital Signs - 24 hr 09/02/22 20:57 09/02/22 21:40 09/02/22 22:33 Temperature 98.0 F 98.0 F 98.2 F Pulse Rate Pulse Rate [Pulse Oximeter] Pulse Rate [Right Pulse Oximeter] 79 81 Respiratory Rate 18 16 Blood Pressure Blood Pressure [Le ft Arm] Blood Pressure [Ri ght Upper Arm] 185/84 H 118/79 Pulse Oximetry 99 99 [facility] Room Air 09/02/22 22:09 09/02/22 22:30 09/02/22 21:00 Temperature Pulse Rate 78 75 Pulse Rate [Pulse Oximeter] Pulse Rate [Right Pulse Oximeter] Respiratory Rate 16 16 Blood Pressure 136/68 125/70 Blood Pressure [Le ft Arm] Blood Pressure [Ri ght Upper Arm] Pulse Oximetry 98 99 98 [facility] 09/02/22 22:36 09/02/22 22:32 09/02/22 23:02 Temperature 98.2 F Pulse Rate 79 74 Pulse Rate [Pulse Oximeter] Pulse Rate [Right Pulse Oximeter] Respiratory Rate 16 16 Blood Pressure 139/68 149/72 H Blood Pressure [Le ft Arm] Blood Pressure [Ri ght Upper Arm] Pulse Oximetry 97 99 [facility] 09/03/22 00:08 09/03/22 00:10 09/03/22 02:57 Temperature 98.2 F 98.2 F 98.0 F Pulse Rate Pulse Rate [Pulse Oximeter] 65 Pulse Rate [Right Pulse Oximeter] 84 84 Respiratory Rate 16 16 16 Blood Pressure Blood Pressure [Le ft Arm] 146/83 H Blood Pressure [Ri ght Upper Arm] 124/78 124/78 Pulse Oximetry 99 94 [facility] Room [facility] Room Air 09/03/22 02:57 09/03/22 04:00 09/03/22 07:00 Temperature Pulse Rate Pulse Rate [Pulse Oximeter] 70 72 Pulse Rate [Right Pulse Oximeter] Respiratory Rate 16 Blood Pressure Blood Pressure [Le ft Arm] 158/75 H Blood Pressure [Ri ght Upper Arm] Pulse Oximetry 95 [facility] Room Air 09/03/22 08:15 09/03/22 11:00 Temperature 97.7 F 97.6 F Pulse Rate Pulse Rate [Pulse Oximeter] 72 63 Pulse Rate [Right Pulse Oximeter] Respiratory Rate 12 12 Blood Pressure Blood Pressure [Le ft Arm] 145/77 H 144/67 H Blood Pressure [Ri ght Upper Arm] Pulse Oximetry 97 95 Oxygen Delivery Me thod Room Air Room Air Hospitalist - H&P: Result Labs Labs: Short CBC 09/02/22 09/03/22 Range/Units 21:30 09:45 WBC 8.75 6.87 (4.50-11.00) K/uL Hgb 11.1 L 9.7 L (12.0-16.0) gm/dL Hct 31.3 L 27.1 L (33.0-51.0) % Plt Count 224 232 (140-440) K/uL BMP 09/02/22 09/03/22 09/03/22 21:30 01:15 09:45 Sodium 120 L* 123 L* 121 L* Potassium 2.7 L* 2.7 L* 3.4 L Chloride 87 L 91 L 93 L Carbon Dioxide 24 25 21 BUN 9 8 7 Creatinine 0.8 0.8 0.8 Glucose 105 94 85 Calcium 9.0 8.6 8.2 L Liver Function 09/02/22 Range/Units 21:30 Total Bilirubin 0.5 (0.1-1.5) mg/dL Direct Bilirubin 0.2 (0.0-0.5) mg/dL AST 25 (12-35) U/L ALT 20 (4-35) U/L Alkaline Phosphatase 68 (40-150) U/L Albumin 4.4 (3.3-5.0) g/dL Urine 09/02/22 Range/Units 21:21 Urine Color Yellow (Yellow) Urine Appearance Slightly Cloudy A (Clear) Urine pH 6.0 (5.0-8.5) Ur Specific [place] 1.010 (1.000-1.030) Urine Protein 1+ A (Negative) Urine Glucose (UA) Negative (Negative) Assessment and Plan Assessment and plan (1) Diverticulitis: Problem comment: - continue IV Cipro/Flagyl (09/02), advance diet as tolerated Status: Acute (2) Hyponatremia: Problem comment: - no history of this. Likely secondary to increased free water take in the setting of illness/poor p.o. intake - fluid restriction, normal saline IV, sodium tablet supplementation, follow closely Status: Acute (3) Hypokalemia: Problem comment: - replace and follow Status: Acute Plan - Per above - SCDs and ambulation for prophylaxis - anticipate home with tomorrow
[2022-09-03 15:28] LABS: Chloride* 96 mmol/L (96-114)
[2022-09-03 15:29] LABS: Potassium* 4.3 mmol/L (3.6-5.1)
[2022-09-03 15:31] LABS: Blood Urea Nitrogen* 6 mg/dL (7-30); Carbon Dioxide* 22 mmol/L (20-32); Creatinine* 0.7 mg/dL (0.5-1.5); Est. Creatinine Clearance* 45.54; Estimated Glomerular Filt Rate 97 ml/min
[2022-09-03 15:32] LABS: Calcium* 8.3 mg/dL (8.4-10.6); Glucose* 86 mg/dL (60-115)
[2022-09-03 15:38] LABS: Sodium* 123 mmol/L (135-149)
--- NOTE | 2022-09-03 18:32 | PC.NURSE ---
Patient is alert and oriented x 4, on RA, vss, up ad mariam. She is no longer on K+ protocol, her K+ at last lab check this afternoon was 4.3. However, she is still hyponatremic and is receiving 100ml/hr NS and is on a fluid restriction of 1800. Patient has advanced to a regular diet and it tolerating it well. Unable as of yet to collect stool specimen for c-Diff, double hats are in the toilet and container is in the BR. Per Dr. Cruz she will almost certainly d/c tomorrow morning.
--- NOTE | 2022-09-03 18:41 | PC.NURSE ---
Patient is alert and oriented x 4, on RA, vss, up ad mariam in the room. Advanced to regular diet and is tolerating it well. Voids in BR independently.
[2022-09-03 23:59] LABS: C.Difficile Negative (Negative); CDIFFEPI 027 PRESUMPTIVE NEGATIVE (Negative)
[2022-09-04 04:00] VITALS: BP 147/70; PULSE 68; RESP 14; TEMP 36.7; O2SAT 94
[2022-09-04] MEDS: 0.9 % SODIUM CHLORIDE 1000 ml 1,000 ML 100 ML IV (04:04)
--- NOTE | 2022-09-04 06:28 | PC.NURSE ---
END OF SHIFT NOTE: PT PLEASANT AND COOPERATIVE. A&O x4. DENIES CP, SOB, N/V. AMBULATES INDEPENDENTLY WITHIN ROOM. VSS ON RA; AFEBRILE. C DIFF IS NEGATIVE. NS @100 ML/HR. CALL LIGHT WITHIN PT?S REACH. UNEVENTFUL NIGHT
[2022-09-04 06:57] LABS: Basophils Absolute Auto 0.03 K/uL (0.00-0.30); Basophils Percent Auto 0.6 % (0.0-3.0); Eosinophils Absolute Auto 0.13 K/uL (0.00-0.50); Eosinophils Percent Auto 2.4 % (0.0-7.0); Hematocrit 31.4 % (33.0-51.0); Hemoglobin* 10.7 gm/dL (12.0-16.0); Immature Granulocytes Abs Auto 0.01 K/uL (0.00-0.30); Immature Granulocytes Pct Auto 0.2 %; Lymphocytes Absolute Auto 1.35 K/uL (0.90-2.90); Lymphocytes Percent Auto 25.1 % (20-44); Mean Corpuscular HGB Conc 34 gm/dL (32-36); Mean Corpuscular Hemoglobin 31 pg (26-34); Mean Corpuscular Volume 90 fL (80-100); Monocytes Percent Auto 5.9 % (0.0-11.0); Neutrophils Absolute Auto 3.54 K/uL (1.7-7.0); Neutrophils Percent Auto 65.8 % (42.0-72.0); Platelet Count* 214 K/uL (140-440); RDW Coefficient of Variation % 11.8 % (11.5-15.5); Red Blood Count 3.51 m/uL (4.00-5.20); White Blood Count* 5.38 K/uL (4.50-11.00)
[2022-09-04 07:05] LABS: Albumin* 3.5 g/dL (3.3-5.0); Chloride* 107 mmol/L (96-114); Sodium* 133 mmol/L (135-149)
[2022-09-04 07:06] LABS: Potassium* 3.9 mmol/L (3.6-5.1)
[2022-09-04 07:08] LABS: Alkaline Phosphatase* 58 U/L (40-150); Aspartate Amino Transferase* 26 U/L (12-35); Bilirubin Total* 0.3 mg/dL (0.1-1.5); Blood Urea Nitrogen* 5 mg/dL (7-30); Carbon Dioxide* 23 mmol/L (20-32); Creatinine* 0.7 mg/dL (0.5-1.5); Est. Creatinine Clearance* 45.54; Estimated Glomerular Filt Rate 97 ml/min; Total Protein* 6.1 g/dL (6.0-8.3)
[2022-09-04 07:09] LABS: Alanine Aminotransferase* 18 U/L (4-35); Calcium* 8.5 mg/dL (8.4-10.6); Glucose* 94 mg/dL (60-115); Magnesium* 1.8 mg/dL (1.5-2.6)
[2022-09-04 07:33] LABS: Slide Review Reflex No
[2022-09-04 07:45] VITALS: BP 159/93; PULSE 73; RESP 18; TEMP 36.5; O2SAT 96
[2022-09-04] MEDS: CIPROFLOXACIN 500 MG TABLET PO (08:54)
[2022-09-04] MEDS: LEVOTHYROXINE 75 MCG TABLET PO (08:55)
[2022-09-04] MEDS: atenoloL 25 MG TABLET PO (08:55)
[2022-09-04] MEDS: metroNIDAZOLE 500 MG TABLET PO (08:55)
[2022-09-04] MEDS: lisinopriL 20 MG TABLET PO (08:55)
[2022-09-04 09:26] VITALS: BP 149/72; PULSE 74; RESP 18; TEMP 36.5
--- NOTE | 2022-09-04 10:55 | PC.NURSE ---
D/c: Pt A&O. Ind in room. Denies pain and n/v. Tolerating meals. IV removed with tip intact. D/c instructions given verbally to pt and written copy sent home. D/c home with around 1035.
--- NOTE | 2022-09-04 11:13 | PM.DS1 ---
DS: Providers Provider Date Seen: 09/04/22 Date of admission: 09/03/22 09:39 Primary care physician: Shaheen Escobar MD Admitting Clinician: Cory Duong MD Attending Physician on discharge: Joy Cruz MD Date of Discharge: 09/04/22 DS: Diagnosis Discharge Diagnosis (1) Hyponatremia: Status: Acute Problem details: - no history of this. Likely secondary to increased free water take in the setting of illness/poor p.o. intake, in addition to continued HCTZ use - improved significantly with mild fluid restriction, sodium tablets, low dose NS, resumption of po intake (2) Hypokalemia: Status: Acute Problem details: - normal upon discharge (3) Diverticulitis: Status: Acute Problem details: - treated with IV Cipro/Flagyl (09/02) during stay, will d/c on oral antibiotics DS: Summary Hospital Course Hospital Course: Patient is a very pleasant 62-year-old female who presented to the hospital with abdominal pain 5 days post colonoscopy. Workup revealed diverticulitis, in addition to hypokalemia and hyponatremia (see above for details). Patient was able to advance diet and her electrolytes normalized on hospital day 1. She was medically appropriate for discharge home with on 09/04 with close PCP follow-up for monitoring of electrolytes. Time Spent with Patient Time attestation: Total time spent providing and/or coordinating discharge services: Time spent: Greater than 30 minutes Specific discharge activities: Medication management, updates to PCP, multidisciplinary care team coordination Exam Narrative: Exam Narrative: GEN: Alert and oriented, sitting comfortably at edge of bed and eating breakfast HEENT: EOMIs bilaterally, no scleral icterus CV: RRR, No concerning murmurs, rubs, or gallops R: LCTA bilaterally without concerning wheezing Ab: Soft and nontender Ext: wwp, no concerning edema Skin: No concerning skin lesions or rashes on exposed skin Neuro: Nonfocal Psych: Appropriate Const: Vital Signs, click to edit/add: Vital Signs - 24 hr 09/03/22 16:22 09/03/22 17:45 09/03/22 15:00 Temperature 98.6 F 98.7 F Pulse Rate Pulse Rate [Pulse Oximeter] 76 Respiratory Rate Blood Pressure Blood Pressure [Le ft Arm] Pulse Oximetry Oxygen Delivery Me thod 09/03/22 15:00 04/26/23 19:35 09/03/22 22:49 Temperature 97.8 F 98.0 F Pulse Rate Pulse Rate [Pulse Oximeter] 76 64 69 Respiratory Rate 12 14 16 Blood Pressure Blood Pressure [Le ft Arm] 155/92 H 150/75 H Pulse Oximetry 98 97 Oxygen Delivery Me thod Room Air Room Air 09/03/22 22:49 09/04/22 04:00 09/04/22 07:45 Temperature 98.2 F 98.0 F 97.7 F Pulse Rate Pulse Rate [Pulse Oximeter] 69 68 73 Respiratory Rate 16 14 18 Blood Pressure Blood Pressure [Le ft Arm] 151/74 H 147/70 H 159/93 H Pulse Oximetry 96 94 96 Oxygen Delivery Me thod Room Air Room Air Room Air 09/04/22 09:26 Temperature 97.7 F Pulse Rate 74 Pulse Rate [Pulse Oximeter] Respiratory Rate 18 Blood Pressure 149/72 H Blood Pressure [Le ft Arm] Pulse Oximetry Oxygen Delivery Me thod DS: Data Data Completed and Pending Labs on day of discharge: Labs from last 24 hours 09/04/22 09/03/22 09/03/22 06:09 23:00 15:07 WBC 5.38 RBC 3.51 L Hgb 10.7 L Hct 31.4 L MCV 90 MCH 31 MCHC 34 RDW Coeff of [place] 11.8 Plt Count 214 Neut % (Auto) 65.8 Lymph % (Auto) 25.1 [place] % (Auto) 5.9 Eos % (Auto) 2.4 Baso % (Auto) 0.6 Neut # (Auto) 3.54 Lymph # (Auto) 1.35 [place] # (Auto) 0.30 Eos # (Auto) 0.13 Baso # (Auto) 0.03 Sodium 133 L 123 L* Potassium 3.9 4.3 Chloride 107 96 Carbon Dioxide 23 22 BUN 5 L 6 L Creatinine 0.7 0.7 Estimated Creat Clear 45.54 45.54 Estimated GFR 97 97 Glucose 94 86 Calcium 8.5 8.3 L Magnesium 1.8 Total Bilirubin 0.3 AST 26 ALT 18 Alkaline Phosphatase 58 Total Protein 6.1 Albumin 3.5 Stl C. diff Tox B Gene Negative Stl C. diff [id number] PRESUMPTIVE NEGATIVE Preliminary micro results at discharge 09/02/22 Unknown Urine Culture - Preliminary Urine,Clean Catch No growth. Discharge Plan Discharge Disposition: Home, Self-Care Date of Admission: 09/03/22 09:39 Attending Provider on Discharge: Joy Cruz Primary Care Provider: Shaheen Escobar Condition: Improved Anticipated Discharge Date/Time: 09/04/22 09:00 Discharge Medications: Continued atenolol 25 mg tablet 25 mg PO DAILY Qty: 90 3RF Patient Comments: TAKE 1 TABLET BY MOUTH ONCE DAILY levothyroxine 75 mcg tablet 75 mcg PO DAILY Qty: 90 3RF Patient Comments: TAKE 1 TABLET BY MOUTH ONCE DAILY lisinopril-hydrochlorothiazide 20-25 mg tablet 0.5 tab PO DAILY Qty: 60 3RF Patient Comments: TAKE 1/2 TABLET BY MOUTH DAILY simvastatin 40 mg tablet 40 mg PO HS Qty: 90 3RF Patient Comments: TAKE 1 TABLET BY MOUTH AT BEDTIME ciprofloxacin HCl 500 mg tablet 500 mg PO BID Qty: 14 0RF metronidazole 500 mg tablet 500 mg PO TID 7 Days Qty: 21 0RF Discharge Orders: Discharge Order (Routine); Ordered 09/04/22 Ordered By: Joy Cruz Patient Education: Diverticulitis (DC), Hyponatremia (DC) Activity Level: Activity as Tolerated Discharge Diet: Regular Diet Detail: low fiber, advance as tolerated Follow Up Appointments: Shaheen Escobar MD [Primary Care Provider] - 09/08/22 10:30 am ([facility] with Dr. Escobar f/u appt with BMP.) Forms: Training Advisor Info Instructions
== END 2022-09-04 10:35 | disposition home or self-care (01) | DRG 392 ==
LOC: ED 21:19 → MEDSURG 09-03 00:09
PROVIDERS: Family Medicine; Internal Medicine; Admitting Provider Internal Medicine; Emergency Provider Family Medicine; PCP Internal Medicine; Visit Provider Internal Medicine
DX: K57.32 Diverticulitis of large intestine without perforation or abscess without bleeding (principal); E87.1 Hypo-osmolality and hyponatremia; E87.6 Hypokalemia; F17.210 Nicotine dependence, cigarettes, uncomplicated; I10 Essential (primary) hypertension; E03.9 Hypothyroidism, unspecified; E78.5 Hyperlipidemia, unspecified; E66.9 Obesity, unspecified; M51.36 Other intervertebral disc degeneration, lumbar region
CPT/HCPCS: 36415; 74177; 80048; 80053; 80076; 81001; 82565; 83605; 83690; 83735; 85025; 86140; 87086; 87493; 87635; 94761; 99199; 99281; 99284; A9270; G0378; J1885; J3480; J7030; Q9967

== ENCOUNTER 2022-09-09 11:03 | Outpatient (CLI) | payer OTHER, SELFPAY | END 2022-09-09 11:04 | disposition home or self-care (01) | LOC: NFLDREF 11:14 | PROVIDERS: PCP Internal Medicine; Visit Provider Internal Medicine | DX: I10 Essential (primary) hypertension (principal); E03.9 Hypothyroidism, unspecified | CPT/HCPCS: 80053 ==

== ENCOUNTER 2023-01-02 12:54 | Outpatient (CLI) | payer OTHER, SELFPAY ==
--- NOTE | 2023-01-02 13:00 | CRLHL7_ITS ---
For Patients: As a result of the Cures Act, medical imaging exams and procedure reports are released immediately into your electronic medical record. You may view this report before your referring provider. If you have questions, please contact your health care provider. BILATERAL SCREENING MAMMOGRAM WITH COMPUTER-AIDED DETECTION AND TOMOSYNTHESIS TECHNIQUE: CC and MLO views were obtained. These mammographic images have been obtained using full-field digital technique. These mammographic images were interpreted with the benefit of computer-aided detection. Breast tomosynthesis was used in this interpretation. COMPARISON FILM: 06/07/21, 05/09/16, 10/01/10. FINDINGS: There are scattered areas of fibroglandular density. IMPRESSION: There is no radiographic evidence for malignancy. ASSESSMENT: BI-RADS Category 1: Negative RECOMMENDATION: Routine screening mammogram in 1 year. A lay language report of this examination will be provided to the patient. JAKE WHITMORE M.D. Diagnostic Radiologist [email or web address] Transcribed: 01/05/2023, 6:[address]/Dictated by: Jake Whitmore MD @ 01/05/2023 9:06:[address]/Dictated by: Jake Whitmore MD @ 01/05/2023 9:06:00 AM (Electronically Signed)
== END 2023-01-02 12:55 | disposition home or self-care (01) ==
LOC: MAMMO 12:56
PROVIDERS: PCP Family Medicine; Visit Provider Internal Medicine
DX: Z12.31 Encounter for screening mammogram for malignant neoplasm of breast (principal)
CPT/HCPCS: 77063; 77067

== ENCOUNTER 2023-05-29 13:37 | Outpatient (CLI) | payer OTHER, SELFPAY ==
--- NOTE | 2023-05-29 13:45 | CRLHL7_ITS ---
For Patients: As a result of the Cures Act, medical imaging exams and procedure reports are released immediately into your electronic medical record. You may view this report before your referring provider. If you have questions, please contact your health care provider. INDICATION: Thyroid nodules. TECHNIQUE: Conventional two-dimensional brizuela-scale ultrasound of the thyroid gland. COMPARISON: Thyroid ultrasound exam of 06/03/2022 FINDINGS: The thyroid gland is extremely heterogeneous in echogenicity, as before. A discrete nodule is not documented today. The right lobe measures 4.3 x 1.9 x 1.8 cm and the left lobe 4.1 x 2.1 x 2.0 cm. The isthmus measures 3 mm in thickness. IMPRESSION: Markedly heterogeneous thyroid parenchymal echogenicity, as before. No discrete nodule documented. ACR TI-RADS: TR1: Benign No FNA TR2: Not Suspicious No FNA TR3: Mildly Suspicious FNA if greater than or equal to 2.5 cm Follow if greater than or equal to 1.5 cm and less than 2.5 cm TR4: Moderately Suspicious FNA if greater than or equal to 1.5 cm Follow if greater than or equal to 1 cm and less than 1.5 cm TR5: Highly Suspicious FNA if greater than or equal to 1 cm Follow if greater than or equal to 0.5 cm and less than 1.0 cm Dictated by Nuno Puente MD @ 06/01/2023 8:56:23 AM (Electronically Signed)
== END 2023-05-29 13:38 | disposition home or self-care (01) ==
PROVIDERS: PCP Internal Medicine; Visit Provider Surgery
DX: E04.1 Nontoxic single thyroid nodule (principal)
CPT/HCPCS: 76536

== ENCOUNTER 2023-07-26 17:01 | Emergency (ER) | payer OTHER, SELFPAY ==
[2023-07-26 17:08] VITALS: BP 139/76; PULSE 66; RESP 16; TEMP 36.5; O2SAT 99; BMI 32.9
--- NOTE | 2023-07-26 17:15 | ED_ITS ---
HPI - Extremity Injury (Lower) General Time Seen by Provider: 17:16 Date Seen: 07/26/23 Chief Complaint: Extremity Pain/Injury, Lower Stated Complaint: R foot tangled up in rug-swollen/painful Time Seen by Provider: 07/26/23 17:03 Source: patient and RN notes reviewed Mode of arrival: ambulatory Limitations: no limitations History of Present Illness HPI Narrative: This 63-year-old female is coming into the ER with complaint of right foot pain. [place], had an injury to her foot later last night. A door blue open in rolled up the rug, this causes the patient to trip and fall. She injured her foot only, nothing else is painful, did not hit her head, no loss of consciousness. It hurts to bear weight on her foot, she has bruising in her foot. She feels that she heard a pop during the injury. She has tried elevating as best she can, they did have a 3-1/[address] home today. She has done some intermittent ice. She has done some zdow-cyz-jmkrlas pain relievers. MD complaint: foot injury Related Data Previous Rx's Medication Instructions Recorded atenolol 25 mg tablet 25 mg PO DAILY Hypertension #90 07/09/22 tabs levothyroxine 75 mcg tablet 75 mcg PO DAILY Hypothyroidism #90 07/09/22 tabs lisinopril 20 0.5 tab PO DAILY Hypertension #60 07/09/22 mg-hydrochlorothiazide 25 mg tablet tabs simvastatin 40 mg tablet 40 mg PO HS Hyperlipidemia #90 tabs 07/09/22 epinephrine 0.3 mg/0.3 mL 0.3 mg (0.3 mL) IM ONCE Anaphalxis 01/26/23 injection, auto-injector #2 ea Allergies Allergy/AdvReac Type Severity Reaction Status Date / Time guaifenesin Allergy Severe Rash Verified 07/26/23 17:13 penicillin V Allergy Severe Diarrhea Verified 07/26/23 17:13 Penicillins AdvReac Intermediate Diarrhea Verified 07/26/23 17:13 Review of Systems Narrative: [facility]. [facility] Bee sting allergy ?Z91.030 - Bee allergy status (ICD-10) Hypothyroidism ?E03.9 - Hypothyroidism, unspecified (ICD-10) Diverticulitis ?K57.92 - Diverticulitis of intestine, part unspecified, without perforation or abscess without bleeding (ICD-10) DDD (degenerative disc disease), lumbar ?M51.36 - Other intervertebral disc degeneration, lumbar region (ICD-10) Intraepithelial neoplasm ?D49.9 - Neoplasm of unspecified behavior of unspecified site (ICD-10) Hypertension ?I10 - Essential (primary) hypertension (ICD-10) Hyperlipidemia ?E78.5 - Hyperlipidemia, unspecified (ICD-10) Diverticulosis of colon (2008) ?K57.30 - Diverticulosis of large intestine without perforation or abscess without bleeding (ICD-10) Class 1 obesity ?E66.9 - Obesity, unspecified (ICD-10) Surgical History History of laparoscopy ?Z98.890 - Other specified postprocedural states (ICD-10) History of hysterectomy with bilateral oophorectomy (1988) ?Z90.710 - Acquired absence of both cervix and uterus (ICD-10) ?Z90.722 - Acquired absence of ovaries, bilateral (ICD-10) History of appendectomy (1983) ?Z90.49 - Acquired absence of other specified parts of digestive tract (ICD- 10) Family History Father Melanoma Uncle Melanoma Social History Narrative: Lives with Wagner, 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 Wagner would be medical decision maker if needed. Full code status. Tapering down her cigarette use, approximately 5-7 per day. No concerning alcohol use. Highest level of school completed/degree received: some college, no degree Smoking Status: Current every day smoker What tobacco products do you use: cigarettes Smoking packs per day: 0.5 Smoking cigarettes per day: 10.0 Years smoked: 40 Smoking pack-years: 20.00 Do you use any of these nicotine containing products: None Second hand tobacco smoke exposure: No How often do you have a drink containing alcohol: monthly or less How often do you have six or more drinks on one occasion: Never AUDIT-C Alcohol total score: 1 Non-prescribed substance use: denies use Caffeine: No Little interest or pleasure in doing things: not at all Feeling down, depressed, or hopeless: not at all service: No Exam Const: Vital Signs, click to edit/add: Vital Signs - 24 hr 07/26/23 17:08 Temperature 97.7 F Pulse Rate [Pulse Oximeter] 66 Respiratory Rate 16 Blood Pressure [Ri ght Upper Arm] 139/76 Pulse Oximetry 99 Oxygen Delivery Me thod Room Air Patient is alert, interactive, no apparent distress, very pleasant. Her sock was removed. Can see obvious ecchymosis and some swelling over the mid to lateral dorsum of her foot. She is tender generally in this area. Has normal distal sensation of her toes, can feel light touch sensation. She has no pain on either malleoli of the ankle, ankle mortise is nontender and intact. She is definitely tender over the mid foot where there is bruising, she is generally tender. She has no tenderness over the 5th metatarsal however. Documenting provider has reviewed patient's vital signs: yes Course Course ED Course: Patient has sustained injury to her foot, we will proceed with x-ray imaging of this foot to rule out underlying fracture. Reevaluation(s) Time of Reevaluation #1: 18:04 Reevaluation #1: Reviewed negative imaging for fractures read by Radiology. Patient states pain is quite bad with ambulating. Will see if a short cam walker will alleviate this. She does understand that I do think she should be rechecked with Orthopedics with in the next 3-7 days, they can decide when they want to see her. We did discuss that midfoot fracture sometimes are not readily identifiable on initial imaging. With the amount of bruising that she has, do think that she should be re-evaluated with Orthopedics. If she is unable to ambulate comfortably with the cam walker, may need to consider crutches. Vital Signs Vital signs: Initial Vital Signs Temperature 97.7 F 07/26/23 17:08 Temperature Source Temporal Artery Scan 07/26/23 17:08 Pulse Rate 66 07/26/23 17:08 Respiratory Rate 16 07/26/23 17:08 Blood Pressure 139/76 07/26/23 17:08 Blood Pressure Mean 97 07/26/23 17:08 Blood Pressure Position Sitting 07/26/23 17:08 Pulse Oximetry 99 0317/24 17:08 Oxygen Delivery Method Room Air 07/26/23 17:08 Vital Signs Temperature 97.7 F 07/26/23 17:08 Pulse Rate 66 07/26/23 17:08 Respiratory Rate 16 07/26/23 17:08 Blood Pressure 139/76 07/26/23 17:08 Pulse Oximetry 99 07/26/23 17:08 Oxygen Delivery Method Room Air 07/26/23 17:08 Temperature 97.7 F 07/26/23 17:08 Pulse Rate 66 07/26/23 17:08 Respiratory Rate 16 07/26/23 17:08 Blood Pressure 139/76 07/26/23 17:08 Pulse Oximetry 99 07/26/23 17:08 Oxygen Delivery Method Room Air 07/26/23 17:08 MDM - Extremity Injury (Lower) Imaging Data XR right foot: Attestation: I have reviewed the pertinent imaging results. Radiologist's impression: Patient: MONY VAZQUEZ Facility:?[facility] Patient ID:?[id number] Site Patient ID:?[id number]. Site :?[id number] Study:?XRay Extremity Right FOOT 3V-07/26/2023 5:34:36 PM Ordering Physician:ABDON LANDEROS Final Report: INDICATION: Injury, right foot pain TECHNIQUE: X-ray right foot, three views COMPARISON: None available FINDINGS: Soft tissue swelling over the dorsal aspect of the foot. Small calcaneal spur. Negative for acute fracture or dislocation. No radiopaque foreign body is seen. IMPRESSION: Soft tissue swelling without acute fracture or dislocation. Dictated by Soco Chirinos MD @ 07/26/2023 5:48:16 PM Dictated by: Soco Chirinos MD @ 07/26/2023 17:48:58 (Electronic Signature) Discharge Plan Discharge Clinical Impression: Contusion of foot, right Qualifiers: Encounter type: initial encounter Qualified Code(s): S90.31XA - Contusion of right foot, initial encounter Patient Disposition: Home, Self-Care Condition: Stable Instructions: Foot Contusion (ED) Additional Instructions: Use the cam walker for ambulation until further advised by Orthopedics. Try to ice and elevate this foot as much as possible over the next few days to help decrease bruising and swelling. Can use bezv-lga-zlyxihj medicines for pain control that you normally would. Contact the orthopedic office to get scheduled for recheck to ensure no underlying fracture, phone number is [phone]. Prescriptions: No Action atenolol 25 mg tablet 25 mg PO DAILY Qty: 90 3RF Patient Comments: TAKE 1 TABLET BY MOUTH ONCE DAILY levothyroxine 75 mcg tablet 75 mcg PO DAILY Qty: 90 3RF Patient Comments: TAKE 1 TABLET BY MOUTH ONCE DAILY lisinopril-hydrochlorothiazide 20-25 mg tablet 0.5 tab PO DAILY Qty: 60 3RF Patient Comments: TAKE 1/2 TABLET BY MOUTH DAILY simvastatin 40 mg tablet 40 mg PO HS Qty: 90 3RF Patient Comments: TAKE 1 TABLET BY MOUTH AT BEDTIME epinephrine 0.3 mg/0.3 mL auto-injector 0.3 mg IM ONCE Qty: 2 0RF Rx Instructions: as a single dose; may repeat once Follow Up/Referrals: Shaheen Escobar MD [Primary Care Provider] - Stand Alone Forms: [employer] Info Instructions
--- NOTE | 2023-07-26 17:20 | XR_ITS ---
Patient: MONY VAZQUEZ Facility:?[facility] Patient ID:?[id number] Site Patient ID:?[id number]. Site :?[id number] Study:?XRay-Extremity Right FOOT 3V-07/26/2023 5:34:36 PM Ordering Physician:?JESSIE LANDEROS Final Report: INDICATION: Injury, right foot pain TECHNIQUE: X-ray right foot, three views COMPARISON: None available FINDINGS: Soft tissue swelling over the dorsal aspect of the foot. Small calcaneal spur. Negative for acute fracture or dislocation. No radiopaque foreign body is seen. IMPRESSION: Soft tissue swelling without acute fracture or dislocation. Dictated by Soco Chirinos MD @ 07/26/2023 5:48:16 PM Dictated by: Soco Chirinos MD @ 07/26/2023 17:48:58 Signed by:?Soco Chirinos MD @07/26/2023 5:48:58 PM (Electronic Signature)
== END 2023-07-26 18:27 | disposition home or self-care (01) ==
PROVIDERS: Emergency Provider Family Medicine; PCP Internal Medicine
DX: S90.31XA Contusion of right foot, initial encounter (principal); W18.09XA Striking against other object with subsequent fall, initial encounter
CPT/HCPCS: 73630; 99283

== ENCOUNTER 2024-09-08 15:13 | Outpatient (CLI) | payer MEDICARE, SELFPAY | END 2024-09-08 15:14 | disposition home or self-care (01) | PROVIDERS: PCP Internal Medicine; Visit Provider Internal Medicine | DX: E03.9 Hypothyroidism, unspecified (principal); E78.5 Hyperlipidemia, unspecified; I10 Essential (primary) hypertension | CPT/HCPCS: 80053; 80061; 84443 ==

== ENCOUNTER 2024-12-16 13:44 | Outpatient (CLI) | payer MEDICARE, SELFPAY ==
--- NOTE | 2024-12-16 14:00 | CRLHL7_ITS ---
For Patients: As a result of the Century Cures Act, medical imaging exams and procedure reports are released immediately into your electronic medical record. You may view this report before your referring provider. If you have questions, please contact your health care provider. INDICATION: BILATERAL SCREENING MAMMOGRAM, ASYMPTOMATIC 64 Y/O FEMALE COMPARISON: 01/02/2023, 06/07/2021, 09/04/2016 TECHNIQUE: Digital mammogram in CC and MLO projections including computer-aided detection (CAD) and tomosynthesis. BREAST COMPOSITION: There are scattered areas of fibroglandular density. FINDINGS: No suspicious findings. ASSESSMENT: BI-RADS 1 Negative RECOMMENDATION: Annual screening mammogram. A lay language report of this examination will be provided to the patient. Dictated by: Jake Hernandez MD @ 12/19/2024 09:23:54 (Electronically Signed)
== END 2024-12-16 13:45 | disposition home or self-care (01) ==
LOC: MAMMO 13:45
PROVIDERS: PCP Internal Medicine; Visit Provider Internal Medicine
DX: Z12.31 Encounter for screening mammogram for malignant neoplasm of breast (principal)
CPT/HCPCS: 77063; 77067